=== PATIENT | female | born 1995 | race Two or more races ===

== ENCOUNTER 2020-12-13 05:11 | Outpatient (CLI) | payer OTHER | END 2020-12-14 09:14 | disposition home or self-care (01) | LOC: OBS/DEL 05:11 | PROVIDERS: ATTEND Specialist | DX: O26.893 Other specified pregnancy related conditions, third trimester (principal); R10.2 Pelvic and perineal pain; Z3A.34 34 weeks gestation of pregnancy; Z20.822 Contact with and (suspected) exposure to COVID-19 ==

== ENCOUNTER 2023-07-10 14:15 | Inpatient (IN) | payer OTHER ==
[~2023-07-10] VITALS: Ht 160 cm; Wt 89.4 kg
[~2023-07-10 14:15] MED LIST: FOLIC ACID PO; PRENATAL TABLE1 EAC1
[2023-07-13] MEDS ORDERED: PRENATAL TABLE1 EAC4 PO (06:45)
[2023-07-13 08:09] LABS: HEMATOCRIT 31.1 % (36.0-45.00); HEMOGLOBIN 10.5 g/dL (12.0-15.00); MEAN CELL VOLUME 79.1 fL (80.00-100.00); MEAN CORPUSCULAR HEMOGLOBIN 26.7 pg (27.00-32.0); MEAN CORPUSCULAR HGB CONC 33.7 g/dl (32.0-36.0); PLATELET COUNT 168 K/uL (150-450); RED BLOOD COUNT 3.93 M/uL (4.00-6.00); RED CELL DISTRIBUTION WIDTH 15.2 % (11.5-14.5)
[2023-07-13 08:17] LABS: URINE APPEARANCE Cloudy; URINE BILIRRUBIN Negative (NEGATIVE); URINE BLOOD Negative; URINE COLOR Yellow; URINE GLUCOSE Negative (NEGATIVE); URINE LEUKOCYTE Large; URINE NITRATE Negative; URINE PROTEIN Trace (NEGATIVE)
[2023-07-13 08:19] LABS: URINE EPITHELIAL CELLS 186.4 uL (0.0-38.8); URINE WBC 402.4 uL (0.0-23.2)
[2023-07-13 08:28] LABS: INR 0.94; PARTIAL THROMBOPLASTIN TIME 28.3 SECONDS (22.0-34.0); PROTHROMBIN TIME 9.9 SECONDS (9.0-11.5)
[2023-07-13 08:34] LABS: URINE BACTERIA > 9821.5 uL (0.0-1933); URINE RBC 1.1 uL (0.0-20.8)
[2023-07-13 08:39] LABS: ALBUMIN 2.7 gm/dL (3.4-5.0); BILIRUBIN TOTAL 0.3 mg/dL (0.3-1.2); CALCIUM 8.7 mg/dL (8.5-10.1); CREATININE SERUM 0.63 mg/dL (0.55-1.02); GFR 115.14; GLOBULINA 3.6 G/DL (2.4-3.5); POTASSIUM 4.59 mEq/L (3.5-5.1); TOTAL PROTEIN 6.3 gm/dL (6.4-8.2)
[2023-07-14 01:00] LABS: HEMATOCRIT 31.6 % (36.0-45.00); HEMOGLOBIN 10.4 g/dL (12.0-15.00); MEAN CELL VOLUME 78.3 fL (80.00-100.00); MEAN CORPUSCULAR HEMOGLOBIN 25.9 pg (27.00-32.0); PLATELET COUNT 157 K/uL (150-450); RED BLOOD COUNT 4.03 M/uL (4.00-6.00); RED CELL DISTRIBUTION WIDTH 15.6 % (11.5-14.5)
[2023-07-15 03:18] LABS: HEMATOCRIT 30.4 % (36.0-45.00); MEAN CELL VOLUME 78.8 fL (80.00-100.00); PLATELET COUNT 154 K/uL (150-450); RED BLOOD COUNT 3.86 M/uL (4.00-6.00); RED CELL DISTRIBUTION WIDTH 15.5 % (11.5-14.5)
== END 2023-07-15 16:11 | disposition home or self-care (01) | DRG 798 ==
LOC: OB/GYN 07-13 05:42 → LDR 07-13 05:42 → OB/GYN 07-13 10:56 → LDR 07-19 14:15
PROVIDERS: ADMIT Specialist; ATTEND Specialist
PROC: 10E0XZZ Delivery of Products of Conception, External Approach (ICD-10-PCS; principal; 2023-07-13)
PROC: 0HQ9XZZ Repair Perineum Skin, External Approach (ICD-10-PCS; 2023-07-13)
PROC: 4A1HXCZ Monitoring of Products of Conception, Cardiac Rate, External Approach (ICD-10-PCS; 2023-07-13)
PROC: 0UB70ZZ Excision of Bilateral Fallopian Tubes, Open Approach (ICD-10-PCS; 2023-07-14)
DX: O70.0 First degree perineal laceration during delivery (principal); Z37.0 Single live birth; Z3A.39 39 weeks gestation of pregnancy; Z20.822 Contact with and (suspected) exposure to COVID-19; Z30.2 Encounter for sterilization